=== PATIENT | male | born 2000 | race Caucasian/White ===

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

== ENCOUNTER 2025-01-12 19:19 | Observation (INO) ==
[2025-01-12] MEDS: ONDANSETRON 4 MG/2 ML VIAL IV ONE (19:53)
[2025-01-12] MEDS: 0.9 % SODIUM CHLORIDE 1,000 ML IV ONE ×2 (19:54→21:23)
[2025-01-12 20:55] LABS: Basophils # (Auto) 0.03 K/mcL (0.00-0.30); Basophils % (Auto) 0.1 % (0.0-2.0); Eosinophils # (Auto) 0 K/mcL (0.00-0.70); Eosinophils % (Auto) 0 % (0.0-7.0); Hematocrit 57.7 % (40.1-51.0); Hemoglobin 19.5 g/dL (13.7-17.5); Lymphocytes # (Auto) 1.24 K/mcL (1.50-4.80); Lymphocytes % (Auto) 4.3 % (15.5-49.0); Mean Corpuscular HGB Conc 33.8 g/dL (31.0-36.0); Monocytes # (Auto) 2.18 K/mcL (0.10-0.90); Monocytes % (Auto) 7.5 % (1.0-12.0); Neutrophils % (Auto) 87.8 % (38.0-78.0); Platelet Count 257 K/mcL (140-440); RBC 6.45 M/mcL (4.63-6.08); WBC 29.0 K/mcL (4.5-11.0)
[2025-01-12] MEDS: LORazepam 2 MG/ML VIAL IV ONE (20:59)
[2025-01-12] MEDS: KETOROLAC 15 MG/ML VIAL IV ONE (20:59)
[2025-01-12 21:06] LABS: ALT/SGPT 34 U/L (<40); AST/SGOT 45 U/L (<40); Albumin 5.9 gm/dL (3.2-5.2); Albumin/Globulin Ratio 1.7 (1.0-2.3); Alkaline Phosphatase 114 U/L (39-117); Anion Gap 28.0 (8.0-16.0); Bilirubin,Total 1.8 mg/dL (0.1-1.0); Blood Urea Nitrogen 24 mg/dL (6-20); Calcium 10.8 mg/dL (8.6-10.4); Carbon Dioxide 20 mmol/L (22-30); Chloride 91 mmol/L (96-108); Globulin 3.5 gm/dL (2.2-3.7); Glucose 132 mg/dL (70-105); Potassium 4.6 mmol/L (3.3-5.1); Sodium 139 mmol/L (133-145)
[2025-01-12] MEDS: PIPERACILLIN SODIUM/TAZOBACTAM 3.375 GM in DEXTROSE 5% IN WATER 50 ML IV ONE (22:16)
[2025-01-12 22:28] LABS: Alcohol,Blood < 0.010 gm/dL (<0.010)
[2025-01-12 22:47] LABS: Acetaminophen < 5.0 ug/mL; Salicylate < 0.5 mg/dL
[2025-01-12 23:24] LABS: Creatine Kinase 317 U/L (24-195)
[2025-01-12 23:56] LABS: Bacteria,Urine MANY /hpf (0); Bilirubin,Urine Negative (Negative); Calcium Oxalate Crystals,Urine FEW /hpf; Color,Urine AMBER; Glucose,Urine (UA) Negative (Negative); Ketones,Urine 5 mg/dL (Negative); Leukocyte Esterase,Urine Negative /uL (Negative); Mucus,Urine MANY /hpf; PH,Urine 5.0 (5.0-9.0); Protein,Urine 100 mg/dL (Negative); Specific Gravity,Urine 1.023 (1.000-1.035); Urobilinogen,Urine 2.0 mg/dL
[2025-01-13 00:14] LABS: Barbiturate Screen,Urine None detected; Benzodiazepines Screen,Urine None detected; Fentanyl, Urine Screen None Detected; Opiate Screen,Urine None detected; Oxycodone, Urine Screen None detected; Phencyclidine Screen,Urine None detected
[2025-01-13 00:47] LABS: Basophils # (Auto) 0.01 K/mcL (0.00-0.30); Basophils % (Auto) 0.1 % (0.0-2.0); Eosinophils # (Auto) 0 K/mcL (0.00-0.70); Eosinophils % (Auto) 0 % (0.0-7.0); Hematocrit 47.7 % (40.1-51.0); Hemoglobin 16.2 g/dL (13.7-17.5); Lymphocytes # (Auto) 0.89 K/mcL (1.50-4.80); Lymphocytes % (Auto) 5.4 % (15.5-49.0); Mean Corpuscular HGB Conc 34.0 g/dL (31.0-36.0); Monocytes # (Auto) 0.82 K/mcL (0.10-0.90); Monocytes % (Auto) 5.0 % (1.0-12.0); Neutrophils % (Auto) 89.3 % (38.0-78.0); Platelet Count 176 K/mcL (140-440); RBC 5.30 M/mcL (4.63-6.08); WBC 16.5 K/mcL (4.5-11.0)
[2025-01-13 01:03] LABS: ALT/SGPT 24 U/L (<40); AST/SGOT 26 U/L (<40); Albumin 4.7 gm/dL (3.2-5.2); Albumin/Globulin Ratio 2.0 (1.0-2.3); Alkaline Phosphatase 84 U/L (39-117); Anion Gap 16.0 (8.0-16.0); Bilirubin,Total 1.6 mg/dL (0.1-1.0); Blood Urea Nitrogen 29 mg/dL (6-20); Calcium 8.9 mg/dL (8.6-10.4); Carbon Dioxide 20 mmol/L (22-30); Chloride 102 mmol/L (96-108); Globulin 2.3 gm/dL (2.2-3.7); Glucose 118 mg/dL (70-105); Potassium 5.3 mmol/L (3.3-5.1); Sodium 138 mmol/L (133-145)
[2025-01-13] MEDS ORDERED: ACETAMINOPHEN 325 MG TABLET PO PRN ×2 (01:51→02:01)
[2025-01-13] MEDS ORDERED: ONDANSETRON 4 MG/2 ML VIAL IV PRN ×2 (01:51→02:01)
[2025-01-13] MEDS: 0.9 % SODIUM CHLORIDE 1,000 ML IV SCH (03:06)
[2025-01-13] MEDS: LACTATED RINGERS 1,000 ML IV SCH (03:11)
[2025-01-13] MEDS: CALCIUM GLUCONATE 4.65 MEQ in DEXTROSE 5% IN WATER 50 ML IV ONE (03:24)
[2025-01-13] MEDS: CALCIUM GLUCONATE 4.65 MEQ/10 ML VIAL ONE (03:30)
[2025-01-13] MEDS: SODIUM ZIRCONIUM CYCLOSILICATE 10 GM PACKET PO ONE (03:37)
[2025-01-13 06:24] LABS: Basophils # (Auto) 0.02 K/mcL (0.00-0.30); Basophils % (Auto) 0.1 % (0.0-2.0); Eosinophils # (Auto) 0.05 K/mcL (0.00-0.70); Eosinophils % (Auto) 0.4 % (0.0-7.0); Hematocrit 45.9 % (40.1-51.0); Hemoglobin 15.4 g/dL (13.7-17.5); Lymphocytes # (Auto) 1.80 K/mcL (1.50-4.80); Lymphocytes % (Auto) 12.6 % (15.5-49.0); Mean Corpuscular HGB Conc 33.6 g/dL (31.0-36.0); Monocytes # (Auto) 1.25 K/mcL (0.10-0.90); Monocytes % (Auto) 8.8 % (1.0-12.0); Neutrophils % (Auto) 78.0 % (38.0-78.0); Platelet Count 166 K/mcL (140-440); RBC 5.08 M/mcL (4.63-6.08); WBC 14.3 K/mcL (4.5-11.0)
[2025-01-13] MEDS ORDERED: cefTRIAXone 1 GM VIAL IV SCH (06:30)
[2025-01-13 07:10] LABS: ALT/SGPT 22 U/L (<40); AST/SGOT 27 U/L (<40); Albumin 4.4 gm/dL (3.2-5.2); Albumin/Globulin Ratio 2.1 (1.0-2.3); Alkaline Phosphatase 75 U/L (39-117); Anion Gap 16.0 (8.0-16.0); Bilirubin,Direct 0.5 mg/dL (<0.3); Bilirubin,Total 1.3 mg/dL (0.1-1.0); Blood Urea Nitrogen 30 mg/dL (6-20); Calcium 9.1 mg/dL (8.6-10.4); Carbon Dioxide 21 mmol/L (22-30); Chloride 99 mmol/L (96-108); Globulin 2.1 gm/dL (2.2-3.7); Glucose 102 mg/dL (70-105); Phosphorous 6.1 mg/dL (2.5-4.5); Potassium 4.2 mmol/L (3.3-5.1); Sodium 136 mmol/L (133-145); Triglycerides 45 mg/dL (<150); Uric Acid 7.4 mg/dL (2.5-8.0)
[2025-01-13] MEDS: ENOXAPARIN 40 MG/0.4 ML SYRINGE SQ SCH (10:12)
[2025-01-13] MEDS: cefTRIAXone 2 GM in DEXTROSE 5% IN WATER 50 ML IV SCH (10:12)
[2025-01-14 06:28] LABS: Basophils # (Auto) 0.02 K/mcL (0.00-0.30); Basophils % (Auto) 0.3 % (0.0-2.0); Eosinophils # (Auto) 0.11 K/mcL (0.00-0.70); Eosinophils % (Auto) 1.7 % (0.0-7.0); Hematocrit 41.5 % (40.1-51.0); Hemoglobin 14.0 g/dL (13.7-17.5); Lymphocytes # (Auto) 1.40 K/mcL (1.50-4.80); Lymphocytes % (Auto) 21.1 % (15.5-49.0); Mean Corpuscular HGB Conc 33.7 g/dL (31.0-36.0); Monocytes # (Auto) 0.63 K/mcL (0.10-0.90); Monocytes % (Auto) 9.5 % (1.0-12.0); Neutrophils % (Auto) 67.2 % (38.0-78.0); Platelet Count 128 K/mcL (140-440); RBC 4.49 M/mcL (4.63-6.08); WBC 6.6 K/mcL (4.5-11.0)
[2025-01-14 06:38] LABS: ALT/SGPT 22 U/L (<40); AST/SGOT 34 U/L (<40); Albumin 3.9 gm/dL (3.2-5.2); Albumin/Globulin Ratio 2.1 (1.0-2.3); Alkaline Phosphatase 61 U/L (39-117); Anion Gap 11.0 (8.0-16.0); Bilirubin,Direct 0.3 mg/dL (<0.3); Bilirubin,Total 0.8 mg/dL (0.1-1.0); Blood Urea Nitrogen 14 mg/dL (6-20); Calcium 8.8 mg/dL (8.6-10.4); Carbon Dioxide 23 mmol/L (22-30); Chloride 106 mmol/L (96-108); Globulin 1.9 gm/dL (2.2-3.7); Glucose 94 mg/dL (70-105); Phosphorous 2.6 mg/dL (2.5-4.5); Potassium 4.4 mmol/L (3.3-5.1); Sodium 140 mmol/L (133-145); Triglycerides 90 mg/dL (<150); Uric Acid 5.9 mg/dL (2.5-8.0)
[2025-01-14 11:30] VITALS: O2SAT 100
[2025-01-14 17:48] VITALS: TEMP 98.2
== END 2025-01-14 17:38 | disposition home or self-care (01) ==
LOC: ED 19:19 → MEDSUR 19:19
PROVIDERS: ADMIT Student in an Organized Health Care Education/Training Program; ATTEND Student in an Organized Health Care Education/Training Program